=== PATIENT | male | born 1970 | race Caucasian/White ===

== ENCOUNTER 2019-03-21 12:22 | Emergency (ER) | payer BC ==
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
[2019-03-21 15:04] LABS: ACETAMINOPHEN 0 ug/mL (10-30)
== END 2019-03-21 17:05 ==
LOC: JD.ED 12:22
DX: F41.9 Anxiety disorder, unspecified (principal); I10 Essential (primary) hypertension; Z88.0 Allergy status to penicillin; Z88.1 Allergy status to other antibiotic agents
CPT/HCPCS: 36415; 80053; 80306; 81001; 84443; 85007; 85027; 93005; 99283; 99284-25; G0480

== ENCOUNTER 2021-05-29 04:03 | Emergency (ER) | payer BC ==
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
[2021-05-29 05:18] LABS: ACETAMINOPHEN 0 ug/mL (10-30)
[2021-05-29] MEDS ORDERED: Haloperidol Lactate 5 MG/ML SDV IM ONE ×3 (06:49→14:00)
[2021-05-29] MEDS ORDERED: Potassium Chloride 20 MEQ Tab.ER PO ONE (07:17)
[2021-05-29] MEDS ORDERED: LORazepam 2 MG/ML SDV IM ONE (11:55)
[2021-05-29] MEDS ORDERED: Haloperidol Lactate 5 MG/ML SDV ONE (12:33)
[2021-05-29] MEDS ORDERED: OLANZapine 5 MG Tab PO ONE (13:10)
[2021-05-29] MEDS ORDERED: LORazepam 1 MG Tab PO ONE (13:33)
== END 2021-05-29 13:22 ==
LOC: JD.ED 04:03
DX: F31.2 Bipolar disorder, current episode manic severe with psychotic features (principal); I10 Essential (primary) hypertension; E66.9 Obesity, unspecified; Z20.822 Contact with and (suspected) exposure to COVID-19; Z88.0 Allergy status to penicillin; Z79.899 Other long term (current) drug therapy
CPT/HCPCS: 36415; 80053; 80143; 80179; 80306; 80307; 84443; 85007; 85027; 87635; 93005; 96372; 99285; A9270; J1630; J2060; U0002